=== PATIENT | male | born 1970 | race Caucasian/White ===

== ENCOUNTER 2021-07-12 14:58 | Emergency (ER) | payer OTHER ==
[~2021-07-12] VITALS: Ht 177.8 cm; Wt 113.4 kg
--- NOTE | 2021-07-12 15:20 | NUR ---
SLIPPED & FALL YESTERDAY FROM WORK. C/O NECK, LOW BACK & RT ARM PAIN -KO. PT AAOX4, VSS. RR EVEN & UNLABORED. DENIES CP, SOB, DIZZINESS, N/V AT THIS TIME. WILL CONT TO MONITOR. AWAITING EVAL BY ERMD/OPERATER.
--- NOTE | 2021-07-12 15:25 | NUR ---
SINCERE MORAN AT FOR MARIA LUZ.
[2021-07-12] MEDS ORDERED: KETOROLAC TROMETHAMINE INJ 30 MG/ML VIAL IM ONE (15:30)
[2021-07-12] MEDS ORDERED: KETOROLAC TROMETHAMINE INJ 30 MG/ML VIAL ONE (15:37)
--- NOTE | 2021-07-12 15:56 | NUR ---
PT BACK FROM CT. PT STABLE, NAD NOTED AT THIS TIME. WILL CONT TO MONITOR.
[2021-07-12] MEDS ORDERED: IBUP-1955 PO (16:56)
[2021-07-12 17:07] VITALS: BP 117/70
--- NOTE | 2021-07-12 17:07 | NUR ---
Patient discharged to home in stable condition. Written and verbal after care instructions given. Patient verbalizes understanding of instruction.
== END 2021-07-12 17:09 | disposition home or self-care (01) ==
LOC: ER 15:02
DX: M54.2 Cervicalgia (principal); M54.50 Low back pain, unspecified; M79.601 Pain in right arm; Z79.899 Other long term (current) drug therapy
CPT/HCPCS: 72125; 73060; 96372; 99284; J1885